=== PATIENT | female | born 1985 | race Two or more races ===

== ENCOUNTER 2018-08-29 03:29 | Inpatient (IN) | payer BC ==
[~2018-08-29] VITALS: Ht 160 cm; Wt 50.2 kg
[2018-08-29 04:14] LABS: Basophils # (auto) 0 uL; Basophils % (auto) 0.1 % (0.0-2.0); Eosinophils # (auto) 0 uL; Hematocrit 43.5 % (36.0-46.0); Hemoglobin 14.7 g/dL (12.2-16.2); Lymphocytes # (auto) 1.5 uL; Lymphocytes % (auto) 11.4 % (10.0-50.0); Mean Corpuscular Hemoglobin 30.6 pg (28.0-32.0); Mean Corpuscular Hgb Conc. 33.9 g/dL (32.0-36.0); Mean Corpuscular Volume 90.5 fL (80.0-100.0); Monocytes # (auto) 0.7 uL; Monocytes % (auto) 5.1 % (0.0-12.0); Neutrophils # (auto) 10.8 uL; Neutrophils % (auto) 83.4 % (37.0-80.0); Nucleated Red Blood Cells % 0.1 %; Platelet Count (auto) 308 10^3/uL (140-450); Red Cell Distribution Width 13.5 % (11.8-14.3); White Blood Cell 12.9 10^3/uL (4.4-10.8)
[2018-08-29 04:35] LABS: Albumin 4.4 g/dL (3.4-5.0); BUN/Creatinine Ratio 17.7; Calcium 8.9 mg/dL (8.5-10.1)
[2018-08-29 04:37] LABS: Bilirubin, Total 0.2 mg/dL (0.2-1.0); Total Protein 9.3 g/dL (6.4-8.2)
[2018-08-29 06:17] LABS: Urine Bacteria FEW /hpf (None Seen); Urine Blood TRACE /uL (Negative); Urine Mucus FEW (None Seen); Urine Specific Gravity 1.042 (1.001-1.035); Urine WBC 9 /hpf (0 - 5)
[2018-08-29] MEDS ORDERED: PANTOPRAZOLE 40 MG/10 ML VIAL IV ONE ×2 (06:45→11:30)
[2018-08-29] MEDS ORDERED: SODIUM CHLORIDE 0.9% 1,000 ML IV ONE ×2 (07:07)
[2018-08-29] MEDS ORDERED: HYDROcodone-ACET 10/325MG TAB PO ONE (08:30)
[2018-08-29] MEDS ORDERED: ONDANSETRON HCL 4 MG/2 ML VIAL IV ONE ×2 (08:30→11:15)
[2018-08-29] MEDS ORDERED: SODIUM CHLORIDE 0.9% 1,000 ML IV SCH (10:53)
[2018-08-29] MEDS ORDERED: cefTRIAXone 1GM/50ML D5W 50 ML IV ONE (11:00)
[2018-08-29] MEDS ORDERED: LORazepam 0.5 MG TAB PO PRN (11:00)
[2018-08-29] MEDS ORDERED: FAMOTIDINE (10MG/ML) 2ML VL IV SCH (11:00)
[2018-08-29] MEDS ORDERED: NITROGLYCERIN 0.4 MG SL TAB SL PRN (11:00)
[2018-08-29] MEDS ORDERED: MORPHINE SULFATE 4 MG/ML SYR/VIAL IV PRN (11:00)
[2018-08-29] MEDS ORDERED: NALBUPHINE HCL 10 MG/1ml INJECTION IV PRN (11:00)
[2018-08-29] MEDS ORDERED: PROMETHAZINE HCL 25 MG/ML 1ML IV PRN (11:00)
[2018-08-29] MEDS ORDERED: TEMAZEPAM 15 MG CAP PO PRN (11:00)
[2018-08-29 11:14] LABS: Amylase 81 U/L (25-115); Lipase 59 U/L (73-393)
[2018-08-29] MEDS ORDERED: MORPHINE SULFATE 4 MG/ML SYR/VIAL IV ONE (11:15)
--- NOTE | 2018-08-29 12:12 | NUR ---
MS admit from ER KALI ROBINS admitted to tele/MS after SBAR received. Patient oriented to Lucio Kruger, primary RN, unit, room, bed, and unit policies regarding patient care and visiting hours. Patient weighed by bedscale and encouraged to call if they need something. All questions and concerns addressed, patient verbalized understanding. PATIENT IS FINISHING UP HER INFUSION BOLUS OF NORMAL SALINE.
[2018-08-29 12:13] LABS: Hemoglobin 12.4 g/dL (12.2-16.2)
[2018-08-29] MEDS: SODIUM CHLORIDE 0.9% 1,000 ML IV SCH ×2 (12:46→19:28)
[2018-08-29] MEDS: metroNIDAZOLE 500MG/100ML 100 ML IV SCH ×2 (12:46→18:18)
[2018-08-29] MEDS ORDERED: ASPITAB34 PO (13:33)
[2018-08-29] MEDS: traMADol HCL 50 MG TAB PO PRN ×2 (14:53→21:41)
[2018-08-29] MEDS: POTASSIUM CHL 20MEQ/100ML 100 ML IV SCH ×2 (14:53→16:34)
[2018-08-29 16:10] LABS: INR 1.03 (0.9-1.15)
[2018-08-29 16:26] VITALS: BP 123/67
[2018-08-29 18:03] LABS: Hemoglobin 12.3 g/dL (12.2-16.2)
[2018-08-29] MEDS: ACETAMINOPHEN 500 MG TAB PO PRN (18:19)
[2018-08-29 20:00] VITALS: BP 150/84
[2018-08-29] MEDS: PANTOPRAZOLE 40 MG TAB PO SCH (21:38)
[2018-08-29 22:00] VITALS: BP 107/64
[2018-08-30] MEDS: metroNIDAZOLE 500MG/100ML 100 ML IV SCH ×3 (00:09→11:35)
[2018-08-30 01:06] LABS: Hematocrit 38.4 % (36.0-46.0); Hemoglobin 12.7 g/dL (12.2-16.2)
[2018-08-30] MEDS: ACETAMINOPHEN 500 MG TAB PO PRN (02:51)
[2018-08-30] MEDS: SODIUM CHLORIDE 0.9% 1,000 ML IV SCH (03:47)
[2018-08-30 05:00] VITALS: BP 99/57
[2018-08-30 05:40] LABS: Basophils # (auto) 0 uL; Basophils % (auto) 0.8 % (0.0-2.0); Eosinophils # (auto) 0.1 uL; Eosinophils % (auto) 2.3 % (0.0-7.0); Hematocrit 35.7 % (36.0-46.0); Lymphocytes # (auto) 2.1 uL; Lymphocytes % (auto) 38.2 % (10.0-50.0); Mean Corpuscular Hgb Conc. 33.7 g/dL (32.0-36.0); Mean Corpuscular Volume 91.9 fL (80.0-100.0); Monocytes # (auto) 0.4 uL; Neutrophils # (auto) 2.8 uL; Neutrophils % (auto) 50.7 % (37.0-80.0); Nucleated Red Blood Cells % 0.1 %; Platelet Count (auto) 212 10^3/uL (140-450); Red Blood Cells 3.88 10^6/uL (4.0-5.20); Red Cell Distribution Width 13.6 % (11.8-14.3); White Blood Cell 5.5 10^3/uL (4.4-10.8)
[2018-08-30 05:59] LABS: Albumin 3.1 g/dL (3.4-5.0); BUN/Creatinine Ratio 9.4; Calcium 7.8 mg/dL (8.5-10.1); Potassium 3.3 mmol/L (3.5-5.1)
[2018-08-30 06:02] LABS: Bilirubin, Total 0.4 mg/dL (0.2-1.0); Total Protein 6.4 g/dL (6.4-8.2)
[2018-08-30] MEDS ORDERED: SODIUM CHLORIDE LOCK 10 ML ONE (07:49)
[2018-08-30] MEDS ORDERED: LIDOCAINE VISCOUS 2% 15ML UD ONE (07:49)
[2018-08-30] MEDS ORDERED: diphenhdrAMINE HCL 50 MG/1 ML VL ONE (07:49)
[2018-08-30 08:00] VITALS: BP 117/76
[2018-08-30] MEDS: PANTOPRAZOLE 40 MG TAB PO SCH ×2 (08:54→21:02)
[2018-08-30] MEDS ORDERED: cefTRIAXone 1GM/50ML D5W 50 ML IV SCH (09:00)
[2018-08-30 09:07] VITALS: BP 117/76
[2018-08-30] MEDS ORDERED: ENOXAPARIN SOD 40 MG/0.4 ML SYRINGE SC SCH (10:00)
--- NOTE | 2018-08-30 10:06 | NUR ---
PT TRANSPORTED TO PRE-OP VIA BED, PT IS AWAKE AND ALERT, WITH IV ON RIGHT HAND PATENT AND FLUSHING, PRE-OP CHECKLIST COMPLETED AND CONSENTS SIGNED. NO SIGNS OF DISTRESS AT THIS TIME, WILL CONTINUE TO MONITOR.
[2018-08-30] MEDS ORDERED: BENZOCAINE (DENTAL) 20 % SPRAY 60ML MT ONE (10:33)
[2018-08-30] MEDS: fentaNYL CITRATE 100 MCG/2 ML VL ONE ×2 (10:35→10:38)
[2018-08-30] MEDS: MIDAZOLAM HCL 5 MG/ML-1ML VIAL ONE ×2 (10:35→10:38)
--- NOTE | 2018-08-30 11:12 | NUR ---
RECEIVED REPORT FROM STEFAN SUNG IN PACU PT S/P EGD AND FOUND ESOPHAGITIS AND GASTRITIS, BIOPSY WAS DONE.
--- NOTE | 2018-08-30 11:30 | NUR ---
RECEIVED PT FROM PACU VIA BED, PT IS AWAKE AND ALERT, NO SIGNS OF DISTRESS AT THIS TIME, WILL CONTINUE TO MONITOR.
[2018-08-30] MEDS ORDERED: SODIUM CHLORIDE 0.9% 1,000 ML IV SCH (12:00)
[2018-08-30] MEDS ORDERED: POTASSIUM CHL 20 Meq TABLET PO ONE (12:00)
[2018-08-30] MEDS: D5W/SOD CHL 0.45%/KCL 40MEQ 1,000 ML IV SCH (15:51)
[2018-08-30] MEDS: traMADol HCL 50 MG TAB PO PRN (15:55)
[2018-08-30 16:41] VITALS: BP 105/69
--- NOTE | 2018-08-30 17:31 | NUR ---
BREAST PUMP PT REQUESTING FOR BREAST PUMP, CALLED L&D BUT THEY NEED DOCTOR'S ORDER. PAGED HOSPITALIST TO OBTAIN AN ORDER, WAITING FOR CALL BACK.
--- NOTE | 2018-08-30 18:05 | NUR ---
BREAST PUMP MACHINE AT BEDSIDE, PT EDUCATED ON HOW TO USE THE BREAST PUMP, PT ABLE TO DEMONSTRATE THE USE OF BREAST PUMP.
[2018-08-30 20:00] VITALS: BP 112/79
[2018-08-30 22:00] VITALS: BP 112/79
[2018-08-31] MEDS: traMADol HCL 50 MG TAB PO PRN ×2 (00:04→07:38)
[2018-08-31] MEDS: D5W/SOD CHL 0.45%/KCL 40MEQ 1,000 ML IV SCH ×3 (02:39→23:46)
[2018-08-31] MEDS: ACETAMINOPHEN 500 MG TAB PO PRN ×2 (02:45→16:39)
[2018-08-31 04:54] VITALS: BP 106/62
[2018-08-31 07:17] LABS: Basophils # (auto) 0 uL; Basophils % (auto) 0.6 % (0.0-2.0); Eosinophils # (auto) 0.2 uL; Eosinophils % (auto) 2.2 % (0.0-7.0); Hemoglobin 12.8 g/dL (12.2-16.2); Lymphocytes # (auto) 1.7 uL; Lymphocytes % (auto) 22.6 % (10.0-50.0); Mean Corpuscular Hemoglobin 30.8 pg (28.0-32.0); Mean Corpuscular Hgb Conc. 33.7 g/dL (32.0-36.0); Mean Corpuscular Volume 91.2 fL (80.0-100.0); Monocytes # (auto) 0.5 uL; Monocytes % (auto) 6.6 % (0.0-12.0); Neutrophils # (auto) 5.1 uL; Platelet Count (auto) 214 10^3/uL (140-450); Red Blood Cells 4.17 10^6/uL (4.0-5.20); Red Cell Distribution Width 13.2 % (11.8-14.3); White Blood Cell 7.5 10^3/uL (4.4-10.8)
--- NOTE | 2018-08-31 07:30 | NUR ---
Opening Shift Note Assumed care of patient, awake and alert, lying on bed. No S/S of distress/SOB or pain. Call light within reach, 2 side rails up and bed in lowest position. Instructed on POC and to call for assist PRN, will continue to monitor for changes Q1hr and PRN.
[2018-08-31 07:36] LABS: Potassium 3.9 mmol/L (3.5-5.1)
[2018-08-31 07:45] LABS: Albumin 3.5 g/dL (3.4-5.0); Bilirubin, Total 0.4 mg/dL (0.2-1.0); Calcium 8.5 mg/dL (8.5-10.1); Total Protein 7.2 g/dL (6.4-8.2)
[2018-08-31 08:46] VITALS: BP 114/72
[2018-08-31] MEDS: PANTOPRAZOLE 40 MG TAB PO SCH ×2 (09:22→22:52)
--- NOTE | 2018-08-31 11:32 | NUR ---
PT SEEN BY DR. COTE MADE AWARE PT IS HAVING SEVERE HEADACHE 10/10 AND TRAMADOL IS NOT WORKING, HE ORDERED IMITREX 6MG SC ONE DOSE.
[2018-08-31] MEDS ORDERED: SUMAtriptan SUCCINATE 6 MG/0.5 ML VL SC ONE (11:45)
[2018-08-31 11:52] VITALS: BP 128/78
--- NOTE | 2018-08-31 11:56 | NUR ---
PT EDUCATED NOT TO BREASTFED HER BABY WITHIN 12 HRS IMITREX WAS GIVEN, PT STATED SHE WILL NOT BREASTFED UNTIL AFTER DISCHARGE.
--- NOTE | 2018-08-31 16:38 | NUR ---
HEADACHE PAIN LEVEL 6/10, PAIN MEDICATION GIVEN ORDERED.
[2018-08-31 16:59] VITALS: BP 113/66
--- NOTE | 2018-08-31 19:00 | NUR ---
Opening Shift Note Assumed care of patient, awake and alert. No S/S of distress/SOB or pain. Instructed on POC and to call for assist PRN, will continue to monitor for changes Q1hr and PRN.
[2018-08-31 22:00] VITALS: BP 114/80
[2018-09-01 05:00] VITALS: BP 114/61
--- NOTE | 2018-09-01 08:00 | NUR ---
RECEIVED PT RESTING IN BED, CALL LIGHT WITHIN REACH, PT DENIES ANY PAIN OR DISCOMFORT AT THIS TIME, WILL CONTINUE TO MONITOR PT.
[2018-09-01 09:00] VITALS: BP 117/69
[2018-09-01] MEDS: D5W/SOD CHL 0.45%/KCL 40MEQ 1,000 ML IV SCH ×2 (09:57→16:45)
[2018-09-01] MEDS: PANTOPRAZOLE 40 MG TAB PO SCH ×2 (09:57→21:54)
[2018-09-01 13:00] VITALS: BP 113/70
[2018-09-01 17:00] VITALS: BP 133/73
--- NOTE | 2018-09-01 18:31 | NUR ---
Pt reported rt hand IV to be swollen and painful, IV DC'd with clean sterile technique, catheter fully intact. Pressure dressing applied to site. Patient tolerated well.
--- NOTE | 2018-09-01 18:32 | NUR ---
IV insertion IV access obtained, via clean sterile technique by inserting 20 gauge catheter at left forearm after 1 attempt. IV secured properly. No trauma to site. Patient tolerated well.
[2018-09-01 22:00] VITALS: BP 123/64
[2018-09-02 05:00] VITALS: BP 127/61
[2018-09-02 06:38] LABS: Basophils # (auto) 0 uL; Basophils % (auto) 0.3 % (0.0-2.0); Eosinophils # (auto) 0.2 uL; Eosinophils % (auto) 2.6 % (0.0-7.0); Hematocrit 41.3 % (36.0-46.0); Lymphocytes # (auto) 1.9 uL; Lymphocytes % (auto) 22.4 % (10.0-50.0); Mean Corpuscular Hemoglobin 31.1 pg (28.0-32.0); Mean Corpuscular Hgb Conc. 33.9 g/dL (32.0-36.0); Mean Corpuscular Volume 91.6 fL (80.0-100.0); Monocytes # (auto) 0.7 uL; Monocytes % (auto) 8.1 % (0.0-12.0); Neutrophils # (auto) 5.7 uL; Neutrophils % (auto) 66.6 % (37.0-80.0); Nucleated Red Blood Cells % 0.1 %; Platelet Count (auto) 230 10^3/uL (140-450); Red Blood Cells 4.51 10^6/uL (4.0-5.20); Red Cell Distribution Width 13.1 % (11.8-14.3); White Blood Cell 8.6 10^3/uL (4.4-10.8)
[2018-09-02 06:59] LABS: Albumin 3.5 g/dL (3.4-5.0); BUN/Creatinine Ratio 17.2; Calcium 8.5 mg/dL (8.5-10.1); Potassium 4.2 mmol/L (3.5-5.1)
[2018-09-02 07:01] LABS: Bilirubin, Total 0.3 mg/dL (0.2-1.0)
[2018-09-02] MEDS ORDERED: POVIDONE IODINE 10 % TOPICAL OINT 30GM TOP ONE (07:12)
--- NOTE | 2018-09-02 07:30 | NUR ---
PT TAKEN TO PRE-OP.
[2018-09-02] MEDS ORDERED: ceFAZolin 1GM/50ML 50 ML IV ONE (07:37)
[2018-09-02] MEDS ORDERED: SUCCINYLCHOLINE CHLORIDE 20 MG/ML 10ML VIAL IV ONE (08:15)
[2018-09-02] MEDS ORDERED: LIDOCAINE W/ EPINEPHRINE 1% 20ML VIAL ONE (08:15)
[2018-09-02] MEDS ORDERED: PROPOFOL 10 MG/ML 20 ML IV ONE (08:17)
[2018-09-02] MEDS ORDERED: ROCURONIUM 10MG/ML 10ML VIAL IV ONE (08:17)
[2018-09-02] MEDS ORDERED: MIDAZOLAM HCL 1MG/1ML-2 ML VIAL ONE (08:17)
[2018-09-02] MEDS ORDERED: METOCLOPRAMIDE HCL 5MG/ml INJ 2ml VIAL ONE (08:20)
[2018-09-02] MEDS ORDERED: fentaNYL CITRATE 100 MCG/2 ML VL ONE (08:30)
[2018-09-02] MEDS ORDERED: HYDROmorphone HCL 2 MG/ML VL IV PRN (08:45)
[2018-09-02] MEDS ORDERED: NALOXONE HCL 0.4 MG/ML VIAL IV PRN (08:45)
[2018-09-02] MEDS ORDERED: ONDANSETRON HCL 4 MG/2 ML VIAL IV ONE (08:45)
[2018-09-02] MEDS ORDERED: ePHEDrine SULFATE 50 MG/ML AMP ONE (08:48)
[2018-09-02] MEDS ORDERED: STERILE WATER 10 ML ONE (08:48)
[2018-09-02 08:55] VITALS: BP 124/62
[2018-09-02] MEDS ORDERED: NEOSTIGMINE 1 MG/ML INJ (10mg/10ML VIAL) ONE (09:07)
[2018-09-02] MEDS ORDERED: GLYCOPYRROLATE 0.2 MG/ML 1ML VIAL ONE (09:07)
[2018-09-02] MEDS: HYDROmorphone HCL 2 MG/ML VL IV PRN ×2 (09:30→09:43)
[2018-09-02] MEDS: PANTOPRAZOLE 40 MG TAB PO SCH ×2 (10:00→23:00)
[2018-09-02] MEDS ORDERED: ONDANSETRON HCL 4 MG/2 ML VIAL IV PRN (11:30)
[2018-09-02] MEDS: D5W/SOD CHL 0.45%/KCL 40MEQ 1,000 ML IV SCH ×3 (11:31→22:45)
[2018-09-02 12:02] VITALS: BP 122/75
--- NOTE | 2018-09-02 13:26 | NUR ---
NUTRITION ASSESSMENT NOTES Please refer to link notes of nutrition screen form filed under the intervention section of the plan of care for further details. Est. Needs: 1550 kcal to 1850 kcal (25-30 kcal/kgBW), 62 gms to 81 gms pro (1.0-1.2 gms/kgBW). Will continue to monitor pertinent labs and reassess nutrient need prn Thank you. Addendum: 09/02/18 at [address] Amended: Links added.
--- NOTE | 2018-09-02 13:30 | NUR ---
PT BACK AT THE ROOM FROM RECOVERY, ABDOMINAL DRESSINGS X3 CLEAN AND DRY, ABDOMINAL BINDER ON, PT DENIES ANY PAIN OR DISCOMFORT AT THIS TIME,
[2018-09-02] MEDS: MORPHINE SULFATE 4 MG/ML SYR/VIAL IV PRN ×3 (13:38→23:01)
--- NOTE | 2018-09-02 13:40 | NUR ---
DR. KIM AT BED SIDE TO SEE PT, DOCTOR DISCUSSED THE PLAN OF CARE WITH PT, PT EDUCATED TO WALK, PT VERBALIZED UNDERSTANDING,
[2018-09-02 16:48] VITALS: BP 100/69
--- NOTE | 2018-09-02 19:00 | NUR ---
Opening Shift Note Assumed care of patient, awake and alert. No S/S of distress/SOB or pain. Surgical incisions dressings clean, dry and intact . Abdominal binder in place. Instructed on POC and to call for assist PRN, will continue to monitor for changes Q1hr and PRN.
[2018-09-02 21:54] VITALS: BP 123/69
[2018-09-03] MEDS: ACETAMINOPHEN 500 MG TAB PO PRN (03:07)
[2018-09-03 05:00] VITALS: BP 110/65
[2018-09-03 06:17] LABS: Basophils # (auto) 0 uL; Basophils % (auto) 0.5 % (0.0-2.0); Eosinophils # (auto) 0.2 uL; Eosinophils % (auto) 2.8 % (0.0-7.0); Hematocrit 38.1 % (36.0-46.0); Lymphocytes # (auto) 1.5 uL; Lymphocytes % (auto) 20.1 % (10.0-50.0); Mean Corpuscular Hemoglobin 31.2 pg (28.0-32.0); Mean Corpuscular Hgb Conc. 34.1 g/dL (32.0-36.0); Mean Corpuscular Volume 91.6 fL (80.0-100.0); Monocytes # (auto) 0.7 uL; Monocytes % (auto) 9.1 % (0.0-12.0); Neutrophils # (auto) 5.1 uL; Neutrophils % (auto) 67.5 % (37.0-80.0); Nucleated Red Blood Cells % 0.1 %; Platelet Count (auto) 215 10^3/uL (140-450); Red Blood Cells 4.16 10^6/uL (4.0-5.20); White Blood Cell 7.5 10^3/uL (4.4-10.8)
[2018-09-03 06:47] LABS: Potassium 3.8 mmol/L (3.5-5.1)
[2018-09-03 06:57] LABS: Albumin 3.5 g/dL (3.4-5.0); BUN/Creatinine Ratio 12.5; Bilirubin, Total 0.4 mg/dL (0.2-1.0); Calcium 8.6 mg/dL (8.5-10.1); Total Protein 7.4 g/dL (6.4-8.2)
[2018-09-03 08:37] VITALS: BP 114/72
[2018-09-03] MEDS: PANTOPRAZOLE 40 MG TAB PO SCH (09:04)
[2018-09-03 13:00] VITALS: BP 105/66
== END 2018-09-03 15:00 | disposition home or self-care (01) | DRG 417 ==
LOC: ER 03:35 → OVERFLOW 10:56 → EAST 12:27
PROVIDERS: ADMIT Internal Medicine; ATTEND Internal Medicine
PROC: 0DB68ZX Excision of Stomach, Via Natural or Artificial Opening Endoscopic, Diagnostic (ICD-10-PCS; principal; 2018-08-30 10:31)
PROC: 0FT44ZZ Resection of Gallbladder, Percutaneous Endoscopic Approach (ICD-10-PCS; 2018-09-02)
DX: K80.10 Calculus of gallbladder with chronic cholecystitis without obstruction (principal); K29.71 Gastritis, unspecified, with bleeding; Z68.1 Body mass index [BMI] 19.9 or less, adult; K59.00 Constipation, unspecified; E86.0 Dehydration; G43.909 Migraine, unspecified, not intractable, without status migrainosus; E11.9 Type 2 diabetes mellitus without complications; E66.01 Morbid (severe) obesity due to excess calories; K20.9 Esophagitis, unspecified; K82.8 Other specified diseases of gallbladder; Z98.51 Tubal ligation status; Z79.84 Long term (current) use of oral hypoglycemic drugs
CPT/HCPCS: 36415; 71045; 74176; 76705; 78226; 80053; 81001; 81025; 82150; 83690; 84702; 85014; 85018; 85025; 85045; 85610; 86850; 86900; 86901; 87086; 96361; 96365; 96375; A6257; C9113; G0378; J0330; J0690; J0696; J2250; J2405; J2704; J3480; J3490